=== PATIENT | male | born 1995 | race Caucasian/White ===

== ENCOUNTER 2018-05-04 09:32 | Emergency (ER) | payer OTHER ==
[2018-05-04] MEDS ORDERED: Promethazine 25 MG Tab PO ONE (11:23)
[2018-05-04] MEDS ORDERED: cefTRIAXone 1 GM, Lidocaine 1% 2.1 ML IM ONE ×2 (11:23)
[2018-05-04] MEDS ORDERED: predniSONE 20 MG Tab PO ONE (11:24)
--- NOTE | 2018-05-04 11:38 | EDM.PDOC ---
Scribed by Jordyn Lucio 05/04/18 1132 for Rustam Maynard MD ED HPI GENERAL MEDICAL PROBLEM - General Chief Complaint: ENT Problem Stated Complaint: EAR PAIN [id number] Time Seen by Provider: 05/04/18 09:51 Source of Information: Reports: Patient, RN, RN Notes Reviewed History Limitations: Reports: No Limitations - History of Present Illness INITIAL COMMENTS - FREE TEXT/NARRATIVE: Patient arrived to ER by private vehicle with complaint of severe left ear pain x2 days with left throat/tonsillar pain and swelling, fever sensation, nausea with vomiting x1. Admits to frontal headache. Denies abdominal pain. Onset: Gradual Duration: Getting Worse Location: Reports: Other (left ear) Quality: Reports: Ache Severity: Severe Improves with: Reports: None Worsens with: Reports: None Associated Symptoms: Reports: No Other Symptoms Left Ear Pain Score (Numeric/FACES): 6 - Related Data Allergies Allergy/AdvReac Type Severity Reaction Status Date / Time No Known Allergies Allergy Verified 05/04/18 10:14 Home Meds: Home Meds . [No Known Home Meds] 05/04/18 [History] Social & Family History - Family History Family Medical History: Noncontributory ED ROS ENT - Review of Systems Review Of Systems: ROS reveals no pertinent complaints other than HPI. ED EXAM, ENT - Physical Exam Exam: See Below Exam Limited By: No Limitations General Appearance: Alert, WD/WN, No Apparent Distress Eye Exam: Bilateral Eye: Normal Inspection Ears: Hearing Grossly Normal, TM Bulging (left), TM Dullness (left), TM Erythema (left), Cerumen Impaction (right). No: Auricular Tenderness, Mastoid Swelling, Mastoid Tenderness, Canal Blood, Canal Discharge, TM Blood Nose: Normal Inspection, Normal Mucousa, No Blood Mouth/Throat: Normal Gums, Normal Lips, Normal Teeth, Tonsillar Erythema (left) , Tonsillar Exudates (left), Tonsillar Swelling (left). No: Peritonsillar Mass , Throat Swelling, Uvular Deviation, Uvular Edema Head: Atraumatic, Normocephalic Neck: Full Range of Motion, Lymphadenopathy (L), Other (no nuchal rigidity) Respiratory/Chest: No Respiratory Distress, Lungs Clear, Normal Breath Sounds, No Accessory Muscle Use, Chest Non-Tender Cardiovascular: Normal Peripheral Pulses, Regular Rate, Rhythm, No Edema, No Gallop, No JVD, No Murmur, No Rub GI/Abdominal: Normal Bowel Sounds, Soft, Non-Tender, No Organomegaly, No Distention, No Abnormal Bruit, No Mass (Male) Exam: Deferred Rectal (Males) Exam: Deferred Back: Normal Inspection, Full Range of Motion Extremities: Normal Inspection, Normal Range of Motion, Non-Tender, No Pedal Edema, Normal Capillary Refill Neurological: Alert, Oriented, CN II-XII Intact, Normal Cognition, Normal Gait, Normal Reflexes, No Motor/Sensory Deficits Psychiatric: Normal Affect, Normal Mood Skin: Warm, Dry, Intact, Normal Color, No Rash Course - Vital Signs Last Recorded V/S: Last Vital Signs Temp 37.3 C 05/04/18 10:07 Pulse 98 05/04/18 10:07 Resp 20 05/04/18 10:07 BP 117/64 05/04/18 10:07 Pulse Ox 100 05/04/18 10:07 - Orders/Labs/Meds Meds: Medications Discontinued Medications Generic Name Dose Route Start Last Admin Trade Name Patsy PRN Reason Stop Dose Admin Ceftriaxone Sodium 1 gm/ 0 gm 05/04/18 11:23 05/04/18 11:33 Lidocaine HCl 2.1 ml IM 05/04/18 11:24 1 inj ONETIME ONE Administration Prednisone 60 mg 05/04/18 11:24 05/04/18 11:33 Prednisone PO 05/04/18 11:25 60 mg ONETIME ONE Administration Promethazine HCl 25 mg 05/04/18 11:23 05/04/18 11:32 Phenergan PO 05/04/18 11:24 25 mg ONETIME ONE Administration Departure - Departure Time of Disposition: 11:29 Disposition: Home, Self-Care 01 Condition: Good Clinical Impression: Tonsillitis Otitis media Qualifiers: Otitis media type: suppurative Chronicity: acute Laterality: left Recurrence: not specified as recurrent Spontaneous tympanic membrane rupture: without spontaneous rupture Qualified Code(s): H66.002 - Acute suppurative otitis media without spontaneous rupture of ear drum, left ear - Discharge Information Instructions: Tonsillitis, [id number], Otitis Media, Adult, [id number] Forms: ED Department Discharge Additional Instructions: RX: Amoxicillin 500mg. RX: Prednisone 20mg. RX: Promethazine 25mg.*DO NOT DRIVE WHILE UNDER THE INFLUENCE OF THIS MEDICATION Rest. Drink plenty of water. Follow up in clinic for recheck in 3 to 4 days. I have read and agree with the documentation that has been completed regarding this visit. By signing this record, I attest that the documentation was completed in my physical presence and is an accurate record of the encounter.
== END 2018-05-04 12:06 | disposition home or self-care (01) ==
LOC: DL.ED 09:32
DX: H66.002 Acute suppurative otitis media without spontaneous rupture of ear drum, left ear (principal); J03.90 Acute tonsillitis, unspecified
CPT/HCPCS: 96372; 99283; A9270; J0696